=== PATIENT | male | born 1975 | race African-American/Black ===

== ENCOUNTER 2022-11-08 14:40 | Inpatient (IN) | payer BC ==
[~2022-11-08] VITALS: Ht 185.4 cm; Wt 103.0 kg
--- NOTE | 2022-11-08 14:50 | NUR ---
Placed in room 08 . Placed on washer assembler, blood pressure machine and pulse oximeter. To gown for exam. Side rails up. Report given to NATHAN CARVALHO.
[2022-11-08 14:51] VITALS: BP_SYST 171
--- NOTE | 2022-11-08 15:00 | NUR ---
Pt brought by , A&Ox4, pt presents to ER with heaviness on L side of the body for 5 days and L side facial swelling x 2 days, pt has intact ROM, no facil drop noted, speaking in full sentences, respirations even and unlabored, cap refill <3, will cont to monitor.
--- NOTE | 2022-11-08 15:05 | NUR ---
Dr Dalal evaluating patient at bedside
--- NOTE | 2022-11-08 15:26 | NUR ---
Pt off th unit for CT
[2022-11-08 16:08] LABS: BASOPHILS # (AUTO) 0.1 K/uL (0.0-0.2); BASOPHILS % (AUTO) 0.6 % (0.0-2.0); EOSINOPHILS # (AUTO) 0.1 K/uL (0.0-0.4); HEMATOCRIT 40.8 % (36-54); HEMOGLOBIN 13.5 g/dL (14.0-18.0); LYMPHOCYTES # (AUTO) 2.1 K/uL (1.0-5.5); LYMPHOCYTES % (AUTO) 17.4 % (20.5-51.5); MEAN CORPUSCULAR HEMOGLOBIN 27 pg (27-31); MEAN CORPUSCULAR HGB CONC 33 % (32-36); MEAN CORPUSCULAR VOLUME 83 fL (79.0-98.0); MONOCYTES % (AUTO) 8.3 % (1.7-9.3); NEUTROPHILS # (AUTO) 8.8 K/uL (1.8-7.7); NEUTROPHILS % (AUTO) 72.7 % (40.0-70.0); PLATELET COUNT (AUTO) 274 K/uL (130-430); RED BLOOD CELL COUNT(AUTO) 4.95 MIL/uL (4.2-6.2); RED CELL DISTRIBUTION WIDTH 13.4 % (9.0-15.0); WHITE BLOOD COUNT (AUTO) 12.2 K/uL (4.8-10.8)
[2022-11-08 17:48] LABS: ALANINE AMINOTRANSFERASE 21 U/L (12-78); ALBUMIN 3.6 g/dL (3.4-4.8); ANION GAP 10 (5-15); ASPARTATE AMINOTRANSFERASE 8 U/L (10-37); CALCIUM 8.9 mg/dL (8.4-11.0); CHLORIDE 103 mmol/L (98-107); CREATININE 1.12 mg/dL (0.55-1.30); GFR AFRICAN AMERICAN 91 mL/min (>90); GLUCOSE 239 mg/dL (70-99); TOTAL BILIRUBIN 0.4 mg/dL (0.0-1.0); UREA NITROGEN, BLOOD 17 mg/dL (8-21)
[2022-11-08] MEDS ORDERED: cloNIDine HCL 0.1 MG TABLET PO ONE (18:15)
[2022-11-08] MEDS ORDERED: ASPIRIN 81 MG TABLET(ECOTRIN) PO ONE (18:15)
[2022-11-08] MEDS ORDERED: ASPI-1393 PO (18:59)
[2022-11-08] MEDS ORDERED: CLON0.1T PO ×2 (18:59)
[2022-11-08] MEDS ORDERED: LISINOPRIL 10 MG TABLET (PRINIVIL) PO ONE (19:15)
--- NOTE | 2022-11-08 19:16 | NUR ---
REPORT GIVEN TO REJI EVANS FOR CONTINUITY OF CARE. ALL QUESTIONS AND CONCERNS ADDRESSED. ALL CARE ENDORSED.
--- NOTE | 2022-11-08 19:23 | NUR ---
Report received from day shift RN for continuity of care. Patient stable condition.
--- NOTE | 2022-11-08 19:24 | NUR ---
Admit bed requested Patient will be admitted to care of Dr. Webber. Admitted to Telemetry unit. Diagnosis TIA and HTN Inpatient (Yes or No) Yes Observation (Yes or No) No Orientation concerns or request close to nursing station (Yes or No) No Covid Status Negative On vent or bipap None Isolation requirements Standard Needs a sitter No From Home (Yes or if No enter name of facility) Yes Requires Dialysis (Yes or No) No Med Rec Completed (Yes of No) Yes
[2022-11-08] MEDS ORDERED: LISI20TA30 PO (20:00)
[2022-11-08] MEDS ORDERED: GLIP10TA21 PO (20:00)
[2022-11-08] MEDS ORDERED: METF-379 PO (20:00)
[2022-11-08] MEDS ORDERED: HYDROCHLOROTHIAZIDE 25 MG TABLET (HCTZ) PO ONE (21:30)
[2022-11-08] MEDS ORDERED: LOSARTAN POTASSIUM 25 MG TABLET PO SCH (21:30)
[2022-11-08 22:06] VITALS: BP_SYST 158
--- NOTE | 2022-11-08 22:11 | NUR ---
Patient will be admitted to care of steam box hand. Admitted to unit. Will go to room . Belongings list completed. Complete and up to date summary report printed. SBAR report to be given at bedside with opportunity for questions.
--- NOTE | 2022-11-08 22:25 | NUR ---
ADMIT NOTE Received pt from ER to the floor with a diagnosis of TIA. Admission process initiated. patient oriented to pain management, safety and call light-teach back done.
[2022-11-08 22:30] VITALS: BP_SYST 149
--- NOTE | 2022-11-08 22:37 | NUR ---
Report given to NATHAN Real for continuity of care. Patient stable.
[2022-11-09 00:02] VITALS: BP_SYST 151
--- NOTE | 2022-11-09 00:05 | NUR ---
ADMISSION ASSESSMENT COMPLETD PLAN OF CARE REVIEWED ORIENTED TO ROOM DONNA LIGHT IN REACH DENIES PAIN WILL CONTINUE TO MONITOR AND ASSESS
--- NOTE | 2022-11-09 04:48 | NUR ---
Consultation Paged Reason for Consultation: TIA Was consult called: Y Person who was notified: Dr. Crawford via text Consulting Physician: David Musa Ordering Physician: Dr. Webber
[2022-11-09] MEDS: INSULIN REGULAR, HUMAN 100 UNITS/ML, 3 ML VIAL (humuLIN R) SUBCUT PRN ×3 (06:30→20:46)
--- NOTE | 2022-11-09 06:42 | NUR ---
mri checklist completed and placed opn chart
--- NOTE | 2022-11-09 07:30 | NUR ---
Initial Note: report received from manager shift nurse. Patient is awake alert x4. Ambulate to bathroom by himself. Assessment is done and vital is checked. No pain or discomfort at this time. Bed in the lowest position and side rails x2 up. Call light in reach. Will continue patient care.
[2022-11-09 08:00] VITALS: BP_SYST 145
[2022-11-09] MEDS ORDERED: metFORMIN HCL 500 MG TABLET PO SCH ×3 (08:00→18:00)
[2022-11-09] MEDS: glipiZIDE XL 5 MG TAB ( GLUCOTROL XL) PO SCH (08:41)
[2022-11-09] MEDS: ASPIRIN 81 MG TABLET(ECOTRIN) PO SCH (08:42)
[2022-11-09] MEDS ORDERED: glipiZIDE XL 5 MG TAB ( GLUCOTROL XL) PO SCH (09:00)
[2022-11-09] MEDS ORDERED: LISINOPRIL 10 MG TABLET (PRINIVIL) PO SCH (09:00)
--- NOTE | 2022-11-09 09:05 | NUR ---
Note: patient is transferred to MRI for the head. check list is done. No pain or discomfort at this time.
--- NOTE | 2022-11-09 09:50 | NUR ---
Note: patient returned to floor. No pain or discomfort. Resume tele box.
[2022-11-09 12:47] VITALS: BP_SYST 152
--- NOTE | 2022-11-09 14:40 | NUR ---
Note: Patient is awake alert x4. Family at the bedside. No pain or discomfort at this time. Bed in the lowest position and side rails x2 up. Will continue to monitor.
[2022-11-09 18:02] VITALS: BP_SYST 150
--- NOTE | 2022-11-09 18:55 | NUR ---
Note: patient complained light headache. Dr. Crawford is here and made aware. Dr. Crawford will see patient and will provide new order.
--- NOTE | 2022-11-09 19:29 | NUR ---
Closing note: Dr. Crawford seen patient. new orders received. Report is given to fast food shift supervisor nurse Addie. Bed in the lowest position and side rails x2 up. Call light in reach. Endorse Addie to continue patient care.
[2022-11-09 19:50] LABS: CHOLESTEROL 166 mg/dL (<200); HDL CHOLESTEROL 65 mg/dL (>45); TRIGLYCERIDES 84 mg/dL (30-150)
--- NOTE | 2022-11-09 20:00 | NUR ---
RECEIVED IN BED FAMILY AT BEDSIDE PLAN OF CARE REVIEWED ASSESSMENT COMPLETED MEDICATIONS REVIEWED ORIENTED T ROOM AND ADVISED TO USE CALL LIGHT FOR ASSISSTANCE UNDERSTANDING VERBALIZED
[2022-11-09 20:40] VITALS: BP_SYST 153
[2022-11-09] MEDS ORDERED: INSULIN GLARGINE 100 UNITS/ML, 10 ML VIAL SUBCUT SCH (21:00)
[2022-11-10] VITALS: BP_SYST 149
[2022-11-10] MEDS: INSULIN REGULAR, HUMAN 100 UNITS/ML, 3 ML VIAL (humuLIN R) SUBCUT PRN (06:11)
--- NOTE | 2022-11-10 06:29 | NUR ---
ALL NEEDS ANTICIPATED AND MET NO CHANGES AT THIS TIME NO ACUTE DISTRESS NOTED
[2022-11-10 07:19] LABS: BASOPHILS % (AUTO) 0.5 % (0.0-2.0); EOSINOPHILS # (AUTO) 0.1 K/uL (0.0-0.4); EOSINOPHILS % (AUTO) 1.7 % (0.0-4.0); HEMATOCRIT 38.6 % (36-54); HEMOGLOBIN 13.2 g/dL (14.0-18.0); LYMPHOCYTES # (AUTO) 2.1 K/uL (1.0-5.5); LYMPHOCYTES % (AUTO) 24.7 % (20.5-51.5); MEAN CORPUSCULAR HEMOGLOBIN 28 pg (27-31); MEAN CORPUSCULAR HGB CONC 34 % (32-36); MEAN CORPUSCULAR VOLUME 82 fL (79.0-98.0); MONOCYTES # (AUTO) 0.9 K/uL (0.0-1.0); NEUTROPHILS # (AUTO) 5.3 K/uL (1.8-7.7); NEUTROPHILS % (AUTO) 62.1 % (40.0-70.0); PLATELET COUNT (AUTO) 300 K/uL (130-430); RED BLOOD CELL COUNT(AUTO) 4.71 MIL/uL (4.2-6.2)
[2022-11-10 07:30] LABS: CALCIUM 8.7 mg/dL (8.4-11.0); CREATININE 0.97 mg/dL (0.55-1.30)
--- NOTE | 2022-11-10 08:05 | NUR ---
OPENING NOTES: RECEIVED BEDSIDE SBAR FROM PM SHIFT NURSE, NO S/S OF ANY DISTRESS, NON LABOR BREATHING, RESTING WELL IN BED WITH EYES CLOSED, BED AT LOW AND LOCKED POSITION, CALL LIGHT IN REACH, IV INTACT, WILL GIVE MEDS PER ORDERS, ALL SAFETY CHECKS DONE AND WILL DO THOUGHT THE DAY.
[2022-11-10 08:06] LABS: WHITE BLOOD COUNT (AUTO) 8.5 K/uL (4.8-10.8)
[2022-11-10] MEDS ORDERED: AMLO5TAB4 PO (11:19)
[2022-11-10] MEDS ORDERED: INSU100V9 SUBCUT (11:19)
[2022-11-10] MEDS ORDERED: METF-380 PO (11:19)
[2022-11-10] MEDS ORDERED: LISI20TA30 PO (11:19)
[2022-11-10] MEDS ORDERED: HYDR12.585 PO (11:19)
[2022-11-10] MEDS: glipiZIDE XL 5 MG TAB ( GLUCOTROL XL) PO SCH (11:56)
[2022-11-10] MEDS: ASPIRIN 81 MG TABLET(ECOTRIN) PO SCH (11:56)
[2022-11-10 12:10] VITALS: BP_SYST 147
[2022-11-10] MEDS ORDERED: ASA81 PO (12:40)
[2022-11-11] MEDS ORDERED: HYDROCHLOROTHIAZIDE 12.5 MG CAPSULE (HCTZ) PO SCH (09:00)
[2022-11-11] MEDS ORDERED: amLODIPine BESYLATE 5 MG TABLET PO SCH (09:00)
== END 2022-11-10 14:50 | disposition home or self-care (01) | DRG 637 ==
LOC: SED 14:40 → STU 21:01
PROVIDERS: ADMIT Specialist; ATTEND Specialist
DX: E11.65 Type 2 diabetes mellitus with hyperglycemia (principal); I63.81 Other cerebral infarction due to occlusion or stenosis of small artery; G81.94 Hemiplegia, unspecified affecting left nondominant side; I10 Essential (primary) hypertension; Z20.822 Contact with and (suspected) exposure to COVID-19; Z79.82 Long term (current) use of aspirin; Z79.899 Other long term (current) drug therapy
CPT/HCPCS: 36415; 70450-TC; 70544; 70551; 71045; 72040-TC; 76376; 76700-TC; 80048; 80053; 80061; 83037; 83880; 84484; 85025; 93005; 93880; 93971; 97116-GP; 97163-GP; 99285; G0378; J1815